=== PATIENT | male | born 1985 | race Caucasian/White ===

== ENCOUNTER 2022-12-10 14:44 | Emergency (ER) | payer OTHER, SELFPAY ==
[2022-12-10 15:06] VITALS: BMI 24.7
[2022-12-10 15:08] VITALS: BP 117/82; PULSE 82; RESP 18; TEMP 36.8; O2SAT 95
--- NOTE | 2022-12-10 15:08 | ECG_ITS ---
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 Measurements Intervals [place] Rate: 80 P: 76 AR: 158 QRS: 85 QRSD: 83 T: 69 QT: 373 QTc: 430 Interpretive Statements SINUS RHYTHM EARLY REPOLARIZATION [ST ELEVATION WITH NORMALLY INFLECTED T-WAVE] No previous ECG available for comparison Electronically Signed On 12-10-2022 17:00:39 CDT by Larissa Phillips M.D. [email or web address] [email or web address] health clermont hospitalLeanStream Media/store/OM/[id number]
--- NOTE | 2022-12-10 15:18 | XR_ITS ---
WS: [id number] XR chest 1V portable [id number] REASON FOR EXAM: chest pain FINDINGS: The heart and mediastinum are within normal limits. Calcified granulomatous disease in both hemithoraces. No active pulmonary parenchymal or pleural disease noted. Bony thorax is intact without significant focal abnormality. XR/XR chest 1V portable [id number] IMPRESSION: No acute chest abnormality.
[2022-12-10 15:45] LABS: Basophils % 0.6 %; Eosinophils # 0.3 10^3/uL (0.0-0.8); Eosinophils % 3.8 %; Hematocrit 47.3 % (42.0-52.0); Hemoglobin 15.7 g/dL (11.7-16.6); Lymphocytes # 2.2 10^3/uL (0.8-4.8); Lymphocytes % 30.9 %; Mean Corpuscular HGB Conc 33.2 g/dL (30.0-36.0); Mean Corpuscular Hemoglobin 29.8 pg (28.0-34.0); Mean Corpuscular Volume 89.9 fl (80-94); Mean Platelet Volume 8.9 fL (7.4-10.4); Monocytes # 0.7 10^3/uL (0.2-0.9); Monocytes % 9.3 %; Neutrophils # 3.95 10^3/uL (1.8-7.7); Neutrophils % 55.3 %; Nucleated Red Blood Cells % 0 %; Platelet Count 254 10^3/cmm (130-400); Red Blood Count 5.26 10^6/uL (4.1-5.3); Red Cell Distribution Width 12.7 % (12.1-15.1); White Blood Count 7.1 10^3/uL (4.0-10.0)
[2022-12-10 16:08] LABS: Alanine Aminotransferase 18 U/L (0-41); Albumin Level 4.5 g/dL (3.5-5.2); Alkaline Phosphatase 87 U/L (40-130); Anion Gap 15.4 (5-19); Aspartate Amino Transferase 18 U/L (0-40); Blood Urea Nitrogen 10 mg/dL (6-20); Calcium 9.5 mg/dL (8.5-10.5); Carbon Dioxide 24 mmol/L (22-29); Chloride 101 mmol/L (98-107); Globulin 2.9 g/dL (1.3-4.6); Glomerular Filtration Rate 128.3 mL/min (90-130); Glucose 80 mg/dL (65-115); Osmolality Calculated 280 mOsm/kg (285-295); Potassium 4.4 mmol/L (3.5-5.1); Sodium 136 mmol/L (136-145); Total Bilirubin 0.5 mg/dL (0.15-1.2); Total Protein 7.4 g/dL (6.6-8.7)
[2022-12-10 16:10] LABS: Troponin(5th) Baseline 6 ng/L (0-15)
--- NOTE | 2022-12-10 16:14 | W.ED.CHESTPA ---
HPI - Chest Pain General: Chief Complaint: Chest Pain Stated Complaint: Chest pain, SOB, Dizziness Time Seen by Provider: 12/10/22 15:16 Source: patient Mode of arrival: ambulatory History of Present Illness: 37-year-old male presents emergency room with complaints of chest pain. This is epigastric area radiating up into his chest that occurs when he interacts with his son. He is evidently had some stress with him recently. He denies any hemoptysis or any shortness of breath or radiation to the neck arms or back. He has no known history of any arrhythmias. He has no significant risk of coronary artery disease. No hemoptysis no shortness of breath no fever sweats or chills. MD complaint: chest pain Onset (ago): week(s) (1) Timing of current episode: episodic Prior episodes: Yes Onset: other (Stress associated with family interactions) Pain location: left chest Pain radiation: none Severity: moderate Quality: aching Relieving factors: nothing Exacerbating factors: other Associated symptoms: Deny abdominal pain, diaphoresis, dyspnea, fever(s), leg edema, nausea, palpitations, sense of impending doom, syncope or vomiting Treatment prior to arrival: none Review of Systems Const: Denies: fever(s), chills or diaphoresis Card: Denies: chest pain, palpitations, irregular heart rhythm, edema or syncope Resp: Denies: dyspnea GI: Denies: abdominal pain, nausea or vomiting : Denies: flank pain, dysuria, urinary frequency or urinary urgency Skin/Breast: Denies: rash or pruritus Physical Exam Const: COMMON NORMALS: no acute distress GENERAL APPEARANCE: cooperative and comfortable ORIENTATION/CONSCIOUSNESS: Yes awake, Yes oriented to person, Yes oriented to place and Yes oriented to time HENMT: COMMON NORMALS: normocephalic, atraumatic and hearing grossly normal bilaterally HEAD & SCALP: normocephalic and atraumatic Resp: COMMON NORMALS: normal respiratory effort, No retractions, No use of accessory muscles and clear to auscultation bilaterally AUSCULTATION: clear to auscultation bilaterally Cardio: COMMON NORMALS: regular rate, regular rhythm and No murmurs present (Cardio) RATE: regular rate RHYTHM: regular rhythm GI: COMMON NORMALS: Soft to palpation and No hepatosplenomegaly present AUSCULTATION: Yes normoactive bowel sounds PALPATION: Yes Soft to palpation, No Tenderness to palpation present (GI), No Guarding due to palpation present (GI) and Yes No hepatosplenomegaly present Extremity: COMMON NORMALS: normal to inspection, capillary refill normal, no clubbing, cyanosis or edema, no calf tenderness and no pedal edema Neuro: SENSORIUM/ORIENTATION: Yes oriented to person, Yes oriented to place and Yes oriented to time Skin: COMMON NORMALS: no rashes or lesions noted GENERAL SKIN EXAM: no rashes or lesions noted Course Vital Signs: Vital signs: Vital Signs Temperature 98.3 F 12/10/22 15:08 Pulse Rate 59 L 12/10/22 18:11 Respiratory Rate 12 12/10/22 18:11 Blood Pressure 111/65 12/10/22 18:11 Pulse Oximetry 99 12/10/22 18:11 Oxygen Delivery Me thod Room Air 12/10/22 15:08 MDM - Chest Pain Medical Decision Making Cardiac enzymes negative EKG does not show any acute ST changes. His risk profile is extremely low is not having any pain now. Discharge patient home on a proton pump inhibitor. Return to the emergency room if he has any further problems. Patient encouraged to establish so primary care physician. [facility] or return to the emergency room. Medical Records I reviewed the patient's medical records. Lab Data I reviewed the patient's lab results. 12/10/22 15:31 12/10/22 15:31 Radiology Impressions Chest X-Ray 12/10/22 15:18 IMPRESSION: No acute chest abnormality. Laboratory Results WBC 7.1 10^3/uL (4.0-10.0) 12/10/22 15: RBC 5.26 10^6/uL (4.1-5.3) 12/10/22 15: Hgb 15.7 g/dL (11.7-16.6) 12/10/22 15: Hct 47.3 % (42.0-52.0) 12/10/22 15: MCV 89.9 fl (80-94) 12/10/22 15: MCH 29.8 pg (28.0-34.0) 12/10/22 15: MCHC 33.2 g/dL (30.0-36.0) 12/10/22 15: RDW 12.7 % (12.1-15.1) 12/10/22 15:31 Plt Count 254 10^3/cmm (130-400) 12/10/22 15:31 MPV 8.9 fL (7.4-10.4) 12/10/22 15:31 Neut % (Auto) 55.3 % 12/10/22 15:31 Lymph % (Auto) 30.9 % 12/10/22 15:31 [place] % (Auto) 9.3 % 12/10/22 15:31 Eos % (Auto) 3.8 % 12/10/22 15:31 Baso % (Auto) 0.6 % 12/10/22 15: Neut # (Auto) 3.95 10^3/uL (1.8-7.7) 12/10/22 15: Lymph # (Auto) 2.2 10^3/uL (0.8-4.8) 12/10/22 15: [place] # (Auto) 0.7 10^3/uL (0.2-0.9) 12/10/22 15: Eos # (Auto) 0.3 10^3/uL (0.0-0.8) 12/10/22 15: Baso # (Auto) 0.0 10^3/uL (0.0-0.1) 12/10/22 15: Nucleated RBC % (auto) 0 % 12/10/22 15: Nucleated RBCs # 0.0 /100WBC 12/10/22 15: Sodium 136 mmol/L (136-145) 12/10/22 15:31 Potassium 4.4 mmol/L (3.5-5.1) 12/10/22 15: Chloride 101 mmol/L (98-107) 12/10/22 15:31 Carbon Dioxide 24 mmol/L (22-29) 12/10/22 15:31 Anion Gap 15.4 (5-19) 12/10/22 15:31 BUN 10 mg/dL (6-20) 12/10/22 15:31 Creatinine 0.7 mg/dL (0.7-1.2) 12/10/22 15:31 GFR Calculation 128.3 mL/min (90-130) 12/10/22 15:31 Glucose 80 mg/dL (65-115) 12/10/22 15:31 Calculated Osmolality 280 mOsm/kg (285-295) L 12/10/22 15:31 Calcium 9.5 mg/dL (8.5-10.5) 12/10/22 15:31 Total Bilirubin 0.5 mg/dL (0.15-1.2) 12/10/22 15:31 AST 18 U/L (0-40) 12/10/22 15:31 ALT 18 U/L (0-41) 12/10/22 15:31 Alkaline Phosphatase 87 U/L (40-130) 12/10/22 15:31 Troponin T Baseline 6 ng/L (0-15) 12/10/22 15:31 Troponin T 120 Minute 6.00 ng/L (0-15) 12/10/22 17:38 Delta Troponin T 0 ABS# (0-10) 12/10/22 17:38 Total Protein 7.4 g/dL (6.6-8.7) 12/10/22 15:31 Albumin 4.5 g/dL (3.5-5.2) 12/10/22 15:31 Globulin 2.9 g/dL (1.3-4.6) 12/10/22 15:31 Urine Color Yellow (Yellow) 12/10/22 16:50 Urine Appearance Clear (CLEAR) 12/10/22 16:50 Urine pH 7 (5-7) 12/10/22 16:50 Ur Specific [place] 1.005 (1.005-1.030) 12/10/22 16:50 Urine Protein Neg (Negative) 12/10/22 16:50 Urine Glucose (UA) Norm (Normal) 12/10/22 16:50 Urine Ketones Negative (Negative) 12/10/22 16:50 Urine Blood Neg (Negative) 12/10/22 16:50 Urine Nitrate Negative (Negative) 12/10/22 16:50 Urine Bilirubin Neg (Negative) 12/10/22 16:50 Urine Urobilinogen Norm mg/dL (Negative) 12/10/22 16:50 Ur Leukocyte Esterase Negative (Negative) 12/10/22 16:50 Discharge Plan Discharge Patient Disposition: Home Clinical Impression: Atypical chest pain, Chest pain due to gastrointestinal reflux disease Condition: Stable Prescriptions: New pantoprazole 40 mg tablet,delayed release (DR/EC) 40 mg PO BID 10 Days Qty: 60 0RF Rx Instructions: 1 pill twice daily for 10 days then 1 pill daily Discharge Orders: Discharge ED (Routine); Ordered 12/10/22 Ordered By: Timothy Reid Discharge Diet: As Directed Patient Instructions: Diet for Stomach Ulcers and Gastritis (ED), GERD (Gastroesophageal Reflux Disease) (ED), Opioid Safety, Pain Management Activity Restrictions/Additional Instructions: Case management make arrangements for you to establish with a primary care physician Coding Level of Care Code ED Predatory Animal Trapper for Edna Spence
[2022-12-10 16:23] VITALS: BP 130/75; PULSE 72; RESP 16; O2SAT 97
[2022-12-10 16:48] VITALS: BP 123/76; PULSE 69; RESP 15; O2SAT 97
[2022-12-10 17:35] VITALS: BP 118/69; PULSE 59; RESP 12; O2SAT 97
--- NOTE | 2022-12-10 17:42 | ECG_ITS ---
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 Measurements Intervals [place] Rate: 58 P: 68 [place]: 159 QRS: 79 QRSD: 86 T: 74 QT: 403 QTc: 396 Interpretive Statements SINUS BRADYCARDIA WITH SINUS ARRHYTHMIA EARLY REPOLARIZATION [ST ELEVATION WITH NORMALLY INFLECTED T-WAVE] Compared to ECG 12/10/2022 15:14:44 Sinus rhythm no longer present Electronically Signed On 12-11-2022 6:43:54 CDT by Sonia Montanez M.D. [email or web address]/store/[id number]
[2022-12-10 17:50] LABS: Add Urine Microscopic? NO; Charge for UA Resulting for Rev
[2022-12-10 17:55] LABS: Bilirubin Urine Neg (Negative); Blood Urine Neg (Negative); Glucose Urine UA Norm (Normal); Ketones Urine Negative (Negative); Leukocyte Esterase Urine Negative (Negative); Nitrate Urine Negative (Negative); Protein Urine Neg (Negative); Specific Gravity, Urine 1.005 (1.005-1.030); Urine Appearance Clear (CLEAR); Urine Color Yellow (Yellow); Urobilinogen Urine Norm (Negative); pH Urine 7 (5-7)
[2022-12-10 18:11] VITALS: BP 111/65; PULSE 59; RESP 12; O2SAT 99
[2022-12-10] MEDS: pantoprazole DR 40 mg Tablet PO (18:13)
[2022-12-10 18:24] LABS: Troponin 5 2HR Delta 0 ABS# (0-10)
--- NOTE | 2022-12-11 10:11 | DCPLANNER ---
solutions manager called patient due to no primary care physician - no answer at this time time, a voicemail was left for patient to return child support case officer phone call.
== END 2022-12-10 18:15 | disposition home or self-care (01) ==
PROVIDERS: Emergency Provider Family Medicine
DX: R07.89 Other chest pain (principal); K21.9 Gastro-esophageal reflux disease without esophagitis
CPT/HCPCS: 36415; 71045; 80053; 81003; 84484; 85025; 93005; 99285